=== PATIENT | male | born 1960 | race Caucasian/White ===

== ENCOUNTER 2016-11-09 08:23 | Day surgery (SDC) | payer BC ==
[2016-11-05 13:57] LABS: BASOPHILS 0.8 %; BASOPHILS ABSOLUTE 0.04 10/3/uL (0.0-0.16); EOSINOPHILS 1.4 %; EOSINOPHILS ABSOLUTE 0.07 10/3/uL (0.0-0.53); HEMATOCRIT 43.9 % (40.0-51.0); HEMOGLOBIN 14.6 g/dL (13.6-17.8); IMMATURE GRANULOCYTES 0.2 %; IMMATURE GRANULOCYTES ABSOLUTE 0.01 10/3/uL (0.0-0.11); LYMPHOCYTES 28.2 %; LYMPHOCYTES ABSOLUTE 1.46 10/3/uL (0.67-4.30); MEAN CORPUS HGB CONC 33.3 g/dL (32.0-36.0); MEAN CORPUSCULAR HEMOGLOB 29.3 pg (26.0-34.0); MEAN CORPUSCULAR VOLUME 88.2 fL (80-100); MEAN PLATELET VOLUME 11.5 fL (9.2-13.0); MONOCYTES 10.6 %; MONOCYTES ABSOLUTE 0.55 10/3/uL (0.21-1.20); NEUTROPHILS 58.8 %; NEUTROPHILS ABSOLUTE 3.04 10/3/uL (2.02-8.40); PLATELET COUNT 193 10/3/uL (150-400); RBC DISTRIBUTION WIDTH 13.1 % (12.0-16.0); RED CELL COUNT 4.98 10/6/uL (4.7-6.1); WHITE BLOOD CELLS 5.2 10/3/uL (4.5-10.5)
[2016-11-05 14:00] LABS: MANUAL DIFF NO %
[2016-11-05 14:15] LABS: A/G RATIO 1.4 (0.7-1.9); ALKALINE PHOSPHATASE 177 U/L (45-117); BUN (BLOOD UREA NITROGEN) 22 MG/DL (6-23); CALCIUM, SERUM 9.5 MG/DL (8.5-10.4); CHLORIDE, SERUM 103 MMOL/L (96-112); CO2 (CARBON DIOXIDE) 31 MMOL/L (24-34); CREATININE 1.06 MG/DL (0.70-1.30); GFR AFRICAN AMERICAN 92 ML/MIN (>=60); GFR NON AFRICAN AMERICAN 79 ML/MIN (>=60); GLOBULIN 2.8 G/DL (2.5-4.1); GLUCOSE, SERUM 109 MG/DL (60-99); POTASSIUM, SERUM 4.5 MMOL/L (3.5-5.3); SGOT(AST) 37 U/L (5-40); SGPT(ALT) 63 U/L (5-65); SODIUM, SERUM 140 MMOL/L (135-148); TOTAL BILIRUBIN 0.5 MG/DL (0-1.2); TOTAL PROTEIN 6.8 G/DL (6.0-8.5)
--- NOTE | ~2016-11-09 | OP ---
Record Of Operation [facility] [address] [place]. [address] NAME: SARAH SIMPSON 4TH : 64 STATUS : [facility]#: [id number] AGE: 56 ADM/REG DATE : 11/09/16 MR#: [id number] REPORT SERV DATE: 11/09/16 DICTATED BY: ALINA OROPEZA JR. DATE: 11/09/16 REPORT STATUS : Draft TRANSCRIBED BY: RIRI DATE: 11/09/16 DATE OF PROCEDURE: DIRECTOR OF INSTITUTIONAL SALES: Gabbi Willard. PROCEDURE: Wide excision melanoma of the left side of the neck (4.5 cm) with layered closure defect (16 cm). [place] lymphatic mapping and deep cervical lymph node biopsy, left neck. PREOPERATIVE DIAGNOSIS: Melanoma. POSTOPERATIVE DIAGNOSIS: Melanoma. ANESTHESIA: General. INDICATIONS: The patient had developed a lesion on the left side of the neck. A biopsy demonstrated a melanoma of at least 6 mm in depth. There was actually some concern this might represent a metastatic lesion; however, no other apparent primary was identified and imaging did not show any evidence of any metastatic disease. Therefore, appropriate wide excision and sentinel mapping was indicated for local regional staging. FINDINGS: The patient had preoperative lymphoscintigraphy, which showed mapping to the left side of the neck. Intraoperatively, two areas of activity identified, one was at the tail of parotid and one was in the upper jugular chain. These were submitted to Pathology for permanent section. There was no significant residual background activity. There were no gross findings on exploring the wide excision and the resulting defect was closed in complex fashion by elevation of flaps and a slight rotation in closure over a 16 cm area. DESCRIPTION OF PROCEDURE: With adequate general anesthesia, the patient was placed in the supine position. The left side of the neck was prepped and draped sterilely. A 2 cm margin was outlined around the previous excision site. Incision was made and it was also extended in local fashion anteriorly and posteriorly. Incision was deepened through the platysma and then excision of the skin underlying platysma and subcutaneous tissues were undertaken. External jugular branches were clamped and divided securing with ligatures of silk. This tissue was submitted as well. Then, flaps were raised up to the angle of mandible inferior to the clavicle, the gamma probe was utilized and identified the activity which was excised, again with the portion of tail parotid superiorly and with the node which was located adjacent to the jugular vein. Bleeders controlled with electrocautery and also with ligatures of Vicryl and small clips. Then, the flap elevation was continued to facilitate closure. A 10-Marshall[place] Jos drain was left and brought out inferior, was secured with nylon suture. The wound was closed with subcutaneous 3-0 Vicryl and 3-0 Monocryl. Additionally, a defect superiorly at the parotid site was closed with mattress sutures of nylon. Sterile glue was applied. The patient left the operating room in satisfactory condition. BLOOD LOSS: 30 mL. Record Of Operation [facility] [address] [place]. [address] NAME: SARAH SIMPSON 4TH : 64 STATUS : [facility]#: [id number] AGE: 56 ADM/REG DATE : 11/09/16 MR#: [id number] REPORT SERV DATE: 11/09/16 DICTATED BY: ALINA OROPEZA JR. DATE: 11/09/16 REPORT STATUS : Draft TRANSCRIBED BY: RIRI DATE: 11/09/16 TEMO/RIRI Alina Oropeza Jr., M.D. / [id number] CC: Jacqueline Tariq Jr.
[~2016-11-09 08:23] MED LIST: ACET500CAP PO; ASTELIN NAS; ATRONASAL3 NAS; CLARINEX5 MG PO; COLESTIPOL1 GM OR; COZAAR100 MG PO; DEMADEX5 MG PO; EFFEXXR75 PO; FLONASE NAS; I20 PO; ILA60 PO; NEUR300 PO; NOR50 PO; NORV25 PO; PRAVAC PO; PREVALITE4 G1 PO; PRILOSEC40 MG PO; PRIM50B PO; SINGULAIR1 PO; SPIRO25 PO; ZEGERID1 CA1 PO
[2017-02-19] MEDS ORDERED: DEMADEX5 MG PO (11:54)
[2017-02-19] MEDS ORDERED: I40 PO (11:55)
[2017-02-19] MEDS ORDERED: PATADAY TOP (11:57)
[2017-02-19] MEDS ORDERED: NORV25 PO (12:04)
== END 2016-11-09 19:48 | disposition home or self-care (01) ==
LOC: SDC 08:23
PROVIDERS: Specialist
PROC: 0HB4XZZ Excision of Neck Skin, External Approach (ICD-10-PCS; 2016-11-09)
PROC: 07B20ZX Excision of Left Neck Lymphatic, Open Approach, Diagnostic (ICD-10-PCS; 2016-11-09)
PROC: 0HX4XZZ Transfer Neck Skin, External Approach (ICD-10-PCS; principal; 2016-11-09 11:00)
DX: L90.5 Scar conditions and fibrosis of skin (principal); Z85.820 Personal history of malignant melanoma of skin; I10 Essential (primary) hypertension; G25.0 Essential tremor; G43.909 Migraine, unspecified, not intractable, without status migrainosus; M19.90 Unspecified osteoarthritis, unspecified site; M50.30 Other cervical disc degeneration, unspecified cervical region; K58.9 Irritable bowel syndrome, unspecified; K21.9 Gastro-esophageal reflux disease without esophagitis; K57.90 Diverticulosis of intestine, part unspecified, without perforation or abscess without bleeding; H81.09 Meniere's disease, unspecified ear; F32.9 Major depressive disorder, single episode, unspecified; Z82.49 Family history of ischemic heart disease and other diseases of the circulatory system; Z98.890 Other specified postprocedural states; Z88.2 Allergy status to sulfonamides; Z79.51 Long term (current) use of inhaled steroids; Z79.899 Other long term (current) drug therapy; Z90.89 Acquired absence of other organs; Z86.010 Personal history of colon polyps
CPT/HCPCS: 71020; 78195; 80053; 83615; 85025; 88305; 88307; 88341; 88342; 93005; A9270-GY; A9541; J0690; J2250; J2370; J2405; J3010